=== PATIENT | female | born 1965 | race Caucasian/White ===

== ENCOUNTER 2016-07-13 10:25 | Outpatient (RCR) | payer OTHER ==
[2016-04-26 12:59] LABS: BASOPHILS % (AUTO) 0 % (0-10); EOSINOPHILS # (AUTO) 0.3 10^3/uL (0.0-0.3); EOSINOPHILS % (AUTO) 4 % (0-10); LYMPHOCYTES # (AUTO) 1.8 X 10^3 (1.0-4.0); LYMPHOCYTES % (AUTO) 22 % (12-44); MEAN CORPUSCULAR HEMOGLOBIN 30 PG (25-34); MEAN CORPUSCULAR HGB CONC 34 G/DL (32-36); MEAN CORPUSCULAR VOLUME 90 FL (80-99); MEAN PLATELET VOLUME 8.7 FL (7.4-10.4); MONOCYTES # (AUTO) 0.6 X 10^3 (0.0-1.0); MONOCYTES % (AUTO) 7 % (0-12); NEUTROPHILS # (AUTO) 5.7 X 10^3 (1.8-7.8); NEUTROPHILS % (AUTO) 67 % (42-75); PLATELET COUNT 347 10^3/uL (130-400); RED BLOOD COUNT 4.14 10^6/uL (4.35-5.85); WHITE BLOOD COUNT 8.5 10^3/uL (4.3-11.0)
[2016-04-26 13:18] LABS: ALBUMIN 3.5 G/DL (3.2-4.5); BILIRUBIN,DIRECT 0.1 MG/DL (0.0-0.3); BILIRUBIN,INDIRECT 0.2 MG/DL; BILIRUBIN,TOTAL 0.3 MG/DL (0.1-1.0); TOTAL PROTEIN 5.9 G/DL (6.4-8.2)
[~2016-07-13 10:25] MED LIST: DCS100C PO; Estradiol PO; FEXO180T84 PO; FOLI0.4T2 PO; GLUC-110 PO; HYDR-3720 PO; IRON1CAP10 PO; Ibuprofen PO; MTX2.5T PO; MULT-974 PO; NAPR-243 PO
[2016-07-13 10:36] LABS: BASOPHILS # (AUTO) 0.1 10^3/uL (0.0-0.1); BASOPHILS % (AUTO) 1 % (0-10); EOSINOPHILS # (AUTO) 0.4 10^3/uL (0.0-0.3); EOSINOPHILS % (AUTO) 4 % (0-10); LYMPHOCYTES # (AUTO) 2.7 X 10^3 (1.0-4.0); LYMPHOCYTES % (AUTO) 28 % (12-44); MEAN CORPUSCULAR HEMOGLOBIN 31 PG (25-34); MEAN CORPUSCULAR HGB CONC 34 G/DL (32-36); MEAN CORPUSCULAR VOLUME 91 FL (80-99); MEAN PLATELET VOLUME 8.5 FL (7.4-10.4); MONOCYTES # (AUTO) 1.1 X 10^3 (0.0-1.0); MONOCYTES % (AUTO) 12 % (0-12); NEUTROPHILS # (AUTO) 5.2 X 10^3 (1.8-7.8); NEUTROPHILS % (AUTO) 55 % (42-75); PLATELET COUNT 387 10^3/uL (130-400); RED BLOOD COUNT 4.26 10^6/uL (4.35-5.85); RED CELL DISTRIBUTION WIDTH 13.1 % (10.0-14.5); WHITE BLOOD COUNT 9.5 10^3/uL (4.3-11.0)
[2016-07-13 10:55] LABS: ALBUMIN 3.4 G/DL (3.2-4.5); BILIRUBIN,DIRECT 0.1 MG/DL (0.0-0.3); BILIRUBIN,INDIRECT 0.2 MG/DL; BILIRUBIN,TOTAL 0.3 MG/DL (0.1-1.0); TOTAL PROTEIN 5.9 G/DL (6.4-8.2)
== END 2016-07-25 | disposition home or self-care (01) ==
LOC: LAB 10:25
PROVIDERS: ATTEND Internal Medicine Rheumatology
DX: Z51.81 Encounter for therapeutic drug level monitoring (principal); Z79.899 Other long term (current) drug therapy
CPT/HCPCS: 36415; 80076; 85025

== ENCOUNTER 2016-11-25 10:04 | Outpatient (RCR) | payer OTHER ==
[2016-11-25 10:20] LABS: BASOPHILS % (AUTO) 0 % (0-10); EOSINOPHILS # (AUTO) 0.3 10^3/uL (0.0-0.3); EOSINOPHILS % (AUTO) 4 % (0-10); LYMPHOCYTES # (AUTO) 1.6 X 10^3 (1.0-4.0); LYMPHOCYTES % (AUTO) 20 % (12-44); MEAN CORPUSCULAR HEMOGLOBIN 31 PG (25-34); MEAN CORPUSCULAR HGB CONC 34 G/DL (32-36); MEAN CORPUSCULAR VOLUME 91 FL (80-99); MEAN PLATELET VOLUME 9.2 FL (7.4-10.4); MONOCYTES # (AUTO) 0.7 X 10^3 (0.0-1.0); MONOCYTES % (AUTO) 9 % (0-12); NEUTROPHILS # (AUTO) 5.3 X 10^3 (1.8-7.8); NEUTROPHILS % (AUTO) 67 % (42-75); PLATELET COUNT 357 10^3/uL (130-400); RED BLOOD COUNT 4.14 10^6/uL (4.35-5.85); RED CELL DISTRIBUTION WIDTH 12.7 % (10.0-14.5); WHITE BLOOD COUNT 7.9 10^3/uL (4.3-11.0)
[2016-11-25 10:51] LABS: ALBUMIN 3.3 GM/DL (3.2-4.5); BILIRUBIN,DIRECT 0.1 MG/DL (0.0-0.3); BILIRUBIN,INDIRECT 0.1 MG/DL; BILIRUBIN,TOTAL 0.2 MG/DL (0.1-1.0); TOTAL PROTEIN 5.8 GM/DL (6.4-8.2)
== END 2017-02-01 | disposition home or self-care (01) ==
LOC: LAB 10:04
PROVIDERS: ATTEND Internal Medicine Rheumatology
DX: M06.9 Rheumatoid arthritis, unspecified (principal); Z79.899 Other long term (current) drug therapy
CPT/HCPCS: 36415; 80076; 85025

== ENCOUNTER 2017-03-24 14:00 | Outpatient (RCR) | payer OTHER | END 2017-05-01 14:15 | disposition home or self-care (01) | DX: M54.5 Low back pain (principal) ==

== ENCOUNTER → 2017-11-11 | Outpatient (CLI) | payer OTHER ==
--- NOTE | 2017-11-11 16:44 | Diagnostic Imaging Report ---
INDICATION: Left hip injury and pain. TIME OF EXAM: 4:38 PM FINDINGS: Two views of the left hip demonstrate normal femoral acetabular alignment. Joint space is well maintained. The femoral head and neck are intact. No fractures are identified. IMPRESSION: No acute bony abnormality is detected. Dictated by: Dictated on workstation # [id number]
--- NOTE | 2017-11-11 16:51 | Diagnostic Imaging Report ---
INDICATION: Left foot injury while running. TIME OF EXAM: 4:43 PM Three views of the left foot were obtained. FINDINGS: The metatarsals appear intact. No periosteal reaction or stress reaction is seen. The phalanges are intact. The midfoot and hindfoot are unremarkable apart from a large plantar calcaneal spur. IMPRESSION: No acute bony abnormality is detected. Dictated by: Dictated on workstation # [id number]
--- NOTE | 2017-11-11 16:58 | Diagnostic Imaging Report ---
INDICATION: Left ankle injury and pain. TIME OF EXAM: 4:40 PM Three views of the left ankle were obtained. FINDINGS: Ankle mortise is well maintained. The talar dome is smooth. Spurring along the undersurface of the medial malleolus is noted. No acute fractures identified. No significant soft tissue swelling is seen. There is a large plantar calcaneal spur. IMPRESSION: No acute bony abnormality is detected. Dictated by: Dictated on workstation # [id number]
== END ==
LOC: RAD 15:58
PROVIDERS: ATTEND Internal Medicine
DX: S99.912A Unspecified injury of left ankle, initial encounter (principal); S99.922A Unspecified injury of left foot, initial encounter; S79.912A Unspecified injury of left hip, initial encounter; Y93.02 Activity, running
CPT/HCPCS: 73502; 73610; 73630

== ENCOUNTER 2018-01-15 10:45 | Outpatient (RCR) | payer OTHER | END 2018-03-04 | disposition home or self-care (01) | DX: S93.402A Sprain of unspecified ligament of left ankle, initial encounter (principal); X58.XXXA Exposure to other specified factors, initial encounter ==

== ENCOUNTER → 2018-01-16 | Outpatient (CLI) | payer OTHER ==
--- NOTE | 2018-01-17 14:51 | Diagnostic Imaging Report ---
PROCEDURE: MRI left joint lower extremity without contrast. TECHNIQUE: Multiplanar, multisequence non contrast-enhanced MRI of the left lower extremity was accomplished. INDICATION: Left ankle pain. COMPARISONS: Left ankle radiographs of 11/11/2017 FINDINGS: TENDONS: Achilles is normal. The peroneal tendons are intact without tenosynovitis. Posterior tibialis, flexor digitorum longus and flexor hallux longus are normal. The anterior tibialis, extensor hallucis longus and extensor digitorum longus are intact where visualized. LIGAMENTS: Anterior and posterior distal tibiofibular ligaments are intact. The anterior talofibular, calcaneofibular and posterior talofibular ligaments are normal. Medial deltoid ligamentous complex is intact. Spring ligament is normal. BONES AND CARTILAGE: There is small focus of full-thickness articular cartilage loss in the medial aspect of the talar dome without underlying subchondral bone marrow edema. This involves an area measuring approximately 8 x 4 mm. No fracture or stress fracture. Large plantar calcaneal spur. SOFT TISSUES: No evidence of plantar fasciitis. No abnormal soft tissue scar/fibrosis within the tarsal canal/sinus tarsi or tarsal tunnel. No ankle joint effusion. IMPRESSION: 1. There is a small region of full-thickness articular cartilage loss in the medial aspect of the talar dome. No underlying subchondral bone defect to indicate osteochondral lesion. 2. No tendon tear. The insertion of the peroneus brevis on the base of fifth remains intact. 3. No fracture or stress fracture within the hindfoot or midfoot. Additionally there is no bone edema in the base of the fifth metatarsal. Dictated by: Dictated on workstation # [id number]
== END ==
LOC: RAD 16:29
PROVIDERS: ATTEND Internal Medicine Rheumatology
DX: M94.8X7 Other specified disorders of cartilage, ankle and foot (principal)
CPT/HCPCS: 73721

== ENCOUNTER → 2020-09-11 | Outpatient (CLI) | payer OTHER ==
--- NOTE | 2020-09-12 12:58 | Diagnostic Imaging Report ---
INDICATION: Routine screening. COMPARISON: 12/15/2013 and 07/20/2012. TECHNIQUE: 2D and 3D bilateral screening mammography was performed with CAD. FINDINGS: Scattered fibroglandular densities are identified bilaterally. The parenchymal pattern appears stable. No mass or malignant appearing microcalcifications are seen. The axillae are unremarkable. IMPRESSION: No mammographic features suspicious for malignancy are identified. ACR BI-RADS Category 1: Negative. Result letter will be mailed to the patient. Note: At least 10% of breast cancer is not imaged by mammography. Dictated by: Dictated on workstation # [id number]
== END ==
LOC: RAD 13:43
PROVIDERS: ATTEND Internal Medicine
DX: Z12.31 Encounter for screening mammogram for malignant neoplasm of breast (principal)
CPT/HCPCS: 77063; 77067

== ENCOUNTER → 2021-04-10 | Outpatient (CLI) | payer OTHER | LOC: CARD 13:00 | PROVIDERS: ATTEND Internal Medicine | DX: I51.7 Cardiomegaly (principal) | CPT/HCPCS: 93306 ==

== ENCOUNTER → 2021-04-23 | Outpatient (CLI) | payer OTHER ==
[~2021-04-23] MED LIST changes: +CATHETER FLUSH 10 ML SYR IV PRN
[2021-04-23 08:09] VITALS: BP 122/72
--- NOTE | 2021-04-23 19:59 | Cardiology Stress Test Report ---
Stress Test Report Date of Procedure/Referring: Date of Procedure: Apr 23, 2021 PCP Aretha Mackay DO Admitting Physician Aretha Mackay DO Indications: Non-specific chest pain with new onset HTN with h/o RA Baseline Heart Rate: 72 Baseline Blood Pressure: Blood Pressure Systolic: 122 Blood Pressure Diastolic: 72 Vital Signs Date Time Temp Pulse Resp B/P (MAP) Pulse Ox O2 Delivery O2 Flow Rate FiO2 04/23/21 08:09 57 122/72 (89) Baseline Vital Signs Vital Signs Date Time Temp Pulse Resp B/P (MAP) Pulse Ox O2 Delivery O2 Flow Rate FiO2 04/23/21 08:09 57 122/72 (89) Summary: After explaining the procedure and details to the patient, she signed the consent and was brought to the stress nuclear laboratory. Patient exercised on standard [facility] protocol, EKG, heart rate and blood pressure were monitored continuously, resting and stress doses of radio tracer were injected, imaging was acquired and reviewed in the short axis, horizontal long axis and vertical long axis views Patient was able to exercise to goal Maximum heart rate 149 Maximum blood pressure 202/99 Stress EKG, Minimal nondiagnostic changes Recovery EKG, Return to baseline Conclusion: Await nuclear images to be read by Dr Pastor. ARETHA MACKAY DO Apr 23, 2021 19:59
--- NOTE | 2021-04-24 22:03 | STRESS TEST ---
DATE OF SERVICE: 04/23/2021 RESTING AND POST EXERCISE TECHNETIUM-99M TETROFOSMIN SPECT CT IMAGING ORDERING PHYSICIAN: Baseline images were carried out after injection of 10.47 mCi of technetium-99m Tetrofosmin. This was followed by exercise on a treadmill under Dr. Mackay's supervision. The heart rate response to exercise was normal. Blood pressure response to exercise was hypertensive. There was approximately [address] segment depression at peak exercise. Test was stopped on account of shortness of breath. The patient exercised for 6 minutes and 15 seconds and attained 7.5 METS of workload. The patient attained 97% of maximum predicted heart rate. At peak exercise, there was approximately [address] segment depression. No significant arrhythmia was seen. Only a few isolated premature ventricular contractions were seen. The patient received 29.7 mCi of technetium-99m Tetrofosmin at peak exercise and the exercise was continued for another minute. Review of images at rest and following stress does not indicate any significant perfusion defects consistent with significant myocardial ischemia or infarction. Gated images show normal global left ventricular systolic function with normal regional wall motion. Left ventricular ejection fraction is calculated to be 72%. Left ventricular end-diastolic volume is 63 mL. TID is absent (0.94). CONCLUSIONS: 1. No evidence of any significant myocardial ischemia or infarction on this study. 2. Normal global left ventricular systolic function with an ejection fraction approximately 72%. 3. No significant regional wall motion abnormalities seen on this study. 4. Somewhat low exercise capacity. Job ID: [id number] DocumentID: [id number] Dictated Date: 04/24/2021 21:20:54 Dog Trainer Date: 04/24/2021 22:02:47 Dictated By: OUMAR ANGEL MD, MA, FACP, FACC,
== END ==
LOC: CARD 07:00
PROVIDERS: ATTEND Internal Medicine
DX: I10 Essential (primary) hypertension (principal); R06.02 Shortness of breath; Z87.39 Personal history of other diseases of the musculoskeletal system and connective tissue
CPT/HCPCS: 78452; 93017; A9502

== ENCOUNTER → 2023-03-24 | Outpatient (CLI) | payer BC ==
[~2023-03-24] MED LIST changes: -CATHETER FLUSH 10 ML SYR IV PRN
--- NOTE | 2023-03-25 15:58 | Diagnostic Imaging Report ---
INDICATION: Routine screening. COMPARISON: 09/11/2020 and 12/15/2013. TECHNIQUE: 2D and 3D bilateral screening mammography was performed with CAD. FINDINGS: Scattered fibroglandular densities are identified bilaterally. The parenchymal pattern is stable. No mass or malignant-appearing microcalcifications are identified. The axillae are unremarkable. IMPRESSION: No mammographic features suspicious for malignancy are identified. ACR BI-RADS Category 1: Negative. Result letter will be mailed to the patient. Note: At least 10% of breast cancer is not imaged by mammography. Dictated by: Dictated on workstation # [id number]
== END ==
LOC: RAD 13:49
PROVIDERS: ATTEND Internal Medicine
DX: Z12.31 Encounter for screening mammogram for malignant neoplasm of breast (principal)
CPT/HCPCS: 77063; 77067